=== PATIENT | female | born 1965 | race Caucasian/White ===

== ENCOUNTER 2025-01-08 07:32 | Day surgery (SDC) | payer OTHER, BC, SELFPAY ==
[2025-01-08] VITALS (21 sets, daily range): BP systolic 101–134; BP diastolic 63–88; PULSE 61–88; RESP 12–18; TEMP 36.2–37.1; O2SAT 96–100; BMI 21.9; BMI 21.7
--- OUTSIDE RECORDS SUMMARY | 2025-01-08 07:34 | XMS_ITS | Encounter Summary ---
Author Organization [facility] Address [address] [place] [address] Care Team Providers Care Explosive Ordnance Disposal Specialist Name Role Phone Juan Manuel Meraz MD Primary Care Provider [phone] Juan Manuel Meraz MD Unavailable [phone] Encounter Details Date Type Department Care Team (Late st Contact Info) Description 01/03/2010 [facility] [address] [place] [address] Juan Manuel Meraz MD [address] [facility] [address] [place] [address] [facility] DISCHARGE SUMMARY (Primary Dx) Social History Tobacco Use Types Packs/Day Years Used Date Smoking Tobacco: Never Smokeless Tobacco: Never Alcohol Use Standard Drinks/Week Comments Yes 0 (1 standard drink = 0.6 oz pur e alcohol) one/day Comments No Sex and Gender Information Value Date Recorded Sex Assigned at Not on file Legal Sex Female 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 Gender Identity Not on file Sexual Orientation Not on file 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 Not on file Not on file Not on file Not on file Not on file Not on file Emergency Department Director Not on file Not on file Not on file documented as of this encounter Plan of Treatment Not on file documented as of this encounter Visit Diagnoses Diagnosis [facility] DISCHARGE SUMMARY- Primary documented in this encounter Care Teams Explosive Ordnance Disposal Specialist Relationship Specialty Start Date End Date Juan Manuel Meraz MD PCP - General 12/24/08 Juan Manuel Meraz MD [address] [facility] [address] [place] [address] Assigned OBGYN Provider 07/04/20 documented as of this encounter
--- OUTSIDE RECORDS SUMMARY | 2025-01-08 07:34 | XMS_ITS | Clinical Summary ---
Author Organization [employer] [facility] Address [address] [place] [address] Care Team Providers Care Machine Mover Name Role Phone Cathy Escalante MD Primary Care Provider [phone] Allergies Active Allergy Reactions Criticality Noted Date Comments Sulfa (Sulfonamide Antibiotics) Hives 11/10 Medications multivitamin (MVI) tablet Take 1 tablet by mouth once daily. 0 10/09/2010 Active glucosamine-cho ndroitin, 500-400 mg, (COSAMIN DS 500/400) 500-400 mg Cap Take 1 capsule by mouth 3 times daily. 0 10/09/2010 Active omega-3 fatty acids-vitamin E (FISH OIL) 1,000 mg Cap Take by mouth. 0 02/10/2012 Active cyclobenzaprine (FLEXERIL) 5 mg tabletIndicatio ns:Acute right-sided low back pain without sciatica Take 1 Tablet (5 mg) by mouth 3 times daily if needed for Muscle Spasm. 30 Tablet 06/07/2024 Active oxybutynin XL (Ditropan XL) 5 mg CR tabletIndicatio ns:Urgency of urination,Urina ry frequency Take 1 Tablet (5 mg) by mouth once daily. 90 Tablet 3 07/25/2024 Active citalopram (CeleXA) 20 mg tabletIndicatio ns:Anxiety Take 1 Tablet (20 mg) by mouth once daily. 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 12/22/2009 Anxiety 03/10/2009 Encounters Date Type Department Care Team Description 01/08/2025 Nurse Triage [facility] [address] [place] [address] Cathy Escalante MD Abdominal Pain (RLQ) from Last 3 Months Immunizations Immunization Administration Dates Next Due Influenza A (H1N1), Inactivated 08/16/2009 Influenza Intradermal PF 18-64 yrs 09/21/2012 Influenza Virus, Unspecified 09/21/2012 Polio Virus, Unspecified 10/25/1977 Rubella 02/01/1979 Td (Age >=7 Years) 10/23/2001 Tdap 12/14/2013 Family History Medical History Relation Name Comments Good Health Brother Good Health Father Arthritis Mother Good Health Mother Cancer-breast No Family History Cancer-colon No Family History Premature CHD (under age 60) No Family History Relation Name Status Comments Brother Father Mother Social History Tobacco Use Types Packs/Day Years Used Date Smoking Tobacco: Never Smokeless Tobacco: Never Tobacco Cessation:Counseling Given: Yes Alcohol Use Standard Drinks/Week Comments Not Currently 0 (1 standard drink = 0.6 oz pur e alcohol) PHQ-2 Answer Date Recorded PHQ-2 TOTAL SCORE 0 07/25/2024 Social Connections Answer Date Recorded Do you often feel lonely or isolated from those around you? 0 07/24/2024 Financial Resource Strain Answer Date R ecorded Difficulty of Paying Living Expenses 3 05/30/2024 Difficulty of Paying Living Expenses Not on file 05/30/2024 Food Insecurity Answer Date Recorded Do you worry your food will run out before you are able to buy more? 1 07/24/2024 Transportation Needs Answer Date Record ed Does lack of transportation keep you from medica l appointments? 1 07/24/2024 Does lack of transportation keep you from work, meetings or getting things that you need? 1 07/24/2024 Housing Stability Answer Date Recorded What is your housing situation today? 1 07/24/2024 Utilities Answer Date Recorded Do you have trouble paying f or utilities (for example, heat, electricity, water, phone)? 1 07/24/2024 Comments No Sex and Gender Information Value Date Recorded Sex Assigned at Not on file Legal Sex Female 6:21 AM MEDICAL STAFF DIRECTOR Gender Identity Not on file Sexual Orientation Not on file Obstetrics History Para Term AB IAB SAB Ectopic Multiple Livin g Live Births 2 2 2 2 2 Date Outcome GA Total Labor Labor/2nd/3rd Weight Sex Type Anes PTL Kathya A1 A5 Name Clin 11/21 Term 40w 0d M Living Reyes 11/14 Term 40w 0d M Living Henry Last Filed Vital Signs Vital Sign Reading Time Taken Comments Blood Pressure 103/64 07/25/2024 7:57 AM MEDICAL STAFF DIRECTOR Pulse 84 07/25/2024 7:57 AM MEDICAL STAFF DIRECTOR Temperature 36.8 C (98.2 F) 07/03/2024 10:19 AM CDT Respiratory Rate 16 01/12/2010 2:00 AM CDT Oxygen Saturation 100% 07/25/2024 7:57 AM MEDICAL STAFF DIRECTOR Inhaled Oxygen Concentration - - Weight 56.1 kg (123 lb 9.6 oz) 07/25/2024 7:57 A M MEDICAL STAFF DIRECTOR Height 154.9 cm (5' 1) 07/25/2024 7:57 AM MEDICAL STAFF DIRECTOR Body Mass Index 23.35 07/25/2024 7:57 AM MEDICAL STAFF DIRECTOR Plan of Treatment Health Maintenance Due Date Last Done Comments HIV for age 15-65 02/12/1980 Hepatitis C screening for ag e 18-79 1983 Pneumococcal series for age 50+ (1 of 1 - PCV) 2015 Zoster (shingles) series for age 50+ (1 of 2) 2015 Tetanus booster 12/15/2023 12/14/2013, 10/23/2001 COVID-19 vaccine series ( season) 2024 06/23/2022, 07/09/2021, 12/17/2020, Additional history exists Influenza Vaccine (Season Ended) 2025 09/21/19 13, 09/21/2012 Lipids for age 45-75 07/15/2025 07/15/2020 (Verified in Care Everywhere or Patient Record) BMI (ht and wt on same day) for age 18+ 07/25/2025 07/25/2024, 12/13/2018 Depression screening for age 12+ 07/25/2025 07/25/2024, 12/14/2018, 12/13/2018 Mammogram for age 45-75 09/10/2025 09/10/20 24, 08/25/2018, 08/23/2017, Additional history exists Colonoscopy through age 75 07/19/202607/19, 07/19/2016, 07/19/2016 Pap test for age 21-65 07/18/2028 3 (Verified in Care Everywhere or Patient Record) Tdap Completed 12/14/2013 Procedures Procedure Name Priority Date/Time Associated Diagnosis Comments XR MAMMO CECILIA BILAT SCREEN Routine 09/10/2024 8:49 AM MEDICAL STAFF DIRECTOR Visit for screening mammogram SCAN-COLONOSCOPY 07/19/2016 12:0 0 AM MEDICAL STAFF DIRECTOR from Last 3 Months or Most Recently Relevant to Health Maintenance Results * XR MAMMO CECILIA BILAT SCREEN (09/10/2024 8:49 AM MEDICAL STAFF DIRECTOR) Anatomical Region Laterality Modality BREASTS, Breast Left, Breast Right Bilateral Mammography Impressions 09/10/2024 2:28 PM MEDICAL STAFF DIRECTOR There is no radiographic evidence for malignancy. Recommend annual mammograms. MAMMOGRAM ASSESSMENT: ACR 1 Negative PATIENTS: You will also receive a letter with your examination results in an easy to read format. If you have questions about your results, please contact your referring provider. Narrative 09/10/2024 2:28 PM MEDICAL STAFF DIRECTOR For Patients: As a result of the Century Cures Act, medical imaging exams and procedure reports are released immediately into your electronic medical record. You may view this report before your referring provider. If you have questions, please contact your health care provider. XR MAMMO CECILIA BILAT SCREEN [[id number]] CLINICAL HISTORY: This is an asymptomatic 59 y.o. patient. INDICATION FOR EXAM: Mammogram Screening. TECHNIQUE: CC & MLO views were obtained. This study was evaluated with the assistance of Computer-Aided Detection. Breast Tomosynthesis was used in interpretation. COMPARISON FILM: Yes 09/07/23 Outside Facility 09/03/22 Outside Facility FINDINGS: The breasts are heterogeneously dense, which may obscure small masses. There are no dominant masses, suspicious micro calcifications or areas of architectural distortion. us Cathy Escalante MD MAMMO Final Resul t * SCAN-COLONOSCOPY (07/19/2016 12:00 AM MEDICAL STAFF DIRECTOR) us Scanner OTHER Final Result from Last 3 Months or Most Recently Relevant to Health Maintenance Insurance [employer] OF [facility] TRAVELERS TRAVELERS Advance Directives * Full Code (Latest Code Status on File) Date Activated Date Inactivated Comments 01/02/2010 10:57 AM 01/03/2010 10:00 PM * Full Code Date Activated Date Inactivated Comments 01/01/2010 2:54 PM 01/02/2010 10:57 AM Care Teams Machine Mover Relationship Specialty Start Date End Date Cathy Escalante MD [address] [place] [address] PCP - General Family Practice 05/21/24
--- OUTSIDE RECORDS SUMMARY | 2025-01-08 07:34 | XMS_ITS | Encounter Summary ---
Author Organization [facility] Address [address] [place] [address] Care Team Providers Care Computer Equipment Repairer Name Role Phone Juan Manuel Meraz MD Primary Care Provider [phone] Juan Manuel Meraz MD Unavailable [phone] Reason for Visit * Reason Comments Medication Refill Encounter Details Date Type Department Care Team (Late st Contact Info) Description 09/24/2023 Refill [facility] [address] [place] [address] Juan Manuel Meraz MD [address] [place] [address] 100 [address] 160 [place] [address] Medication Refill Social History Tobacco Use Types Packs/Day Years Used Date Smoking Tobacco: Never Smokeless Tobacco: Never Alcohol Use Standard Drinks/Week Comments Yes 0 (1 standard drink = 0.6 oz pur e alcohol) one/day PHQ-2 Answer Date Recorded PHQ-2 Score 1 07/18/2023 Adolescent Education Answer Date Record ed Getting School Help Needed Not on file 06/26 Comments No Sex and Gender Information Value Date Recorded Sex Assigned at Not on file Legal Sex Female 3:14 AM SAFETY INTERN Gender Identity Not on file Sexual Orientation Not on file 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 Not on file Not on file Not on file Not on file Not on file Not on file Tele Marketing Executive Not on file Not on file Not on file documented as of this encounter Plan of Treatment Not on file documented as of this encounter Visit Diagnoses Diagnosis Urgency-frequency syndrome Hypertonicity of bladder documented in this encounter Care Teams Computer Equipment Repairer Relationship Specialty Start Date End Date Juan Manuel Meraz MD PCP - General 12/24/08 Juan Manuel Meraz MD [address] [facility] [address] [place] [address] Assigned OBGYN Provider 07/04/20 documented as of this encounter
--- OUTSIDE RECORDS SUMMARY | 2025-01-08 07:34 | XMS_ITS | Encounter Summary ---
Author Organization [facility] Address [address] [place] [address] Care Team Providers Care Steam Shovelman Name Role Phone Juan Manuel Meraz MD Primary Care Provider [phone] Juan Manuel Meraz MD Unavailable [phone] Encounter Details Date Type Department Care Team (Late st Contact Info) Description 06/27/2023 [facility] [address] [place] [address] Bonnie Juarez RN Social History Tobacco Use Types Packs/Day Years Used Date Smoking Tobacco: Never Smokeless Tobacco: Never Alcohol Use Standard Drinks/Week Comments Yes 0 (1 standard drink = 0.6 oz pur e alcohol) one/day PHQ-2 Answer Date Recorded PHQ-2 Score 0 07/06/2021 Adolescent Education Answer Date Record ed Getting School Help Needed Not on file 06/26 Comments No Sex and Gender Information Value Date Recorded Sex Assigned at Not on file Legal Sex Female 3:14 AM TRANSIT MECHANIC Gender Identity Not on file Sexual Orientation Not on file 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
--- OUTSIDE RECORDS SUMMARY | 2025-01-08 07:34 | XMS_ITS | Encounter Summary ---
Author Organization [facility] Address [address] [place] [address] Care Team Providers Care Hostess Party Sales Representative Name Role Phone Juan Manuel Meraz MD Primary Care Provider [phone] Juan Manuel Meraz MD Unavailable [phone] Encounter Details Date Type Department Care Team (Late st Contact Info) Description 01/12/2010 [facility] [address] [place] [address] Juan Manuel Meraz MD [address] [facility] [address] [place], [place] [id number] [facility] ED PROVIDER NOTE Social History Tobacco Use Types Packs/Day Years Used Date Smoking Tobacco: Never Smokeless Tobacco: Never Alcohol Use Standard Drinks/Week Comments Yes 0 (1 standard drink = 0.6 oz pur e alcohol) one/day Comments No Sex and Gender Information Value Date Recorded Sex Assigned at Not on file Legal Sex Female 3:14 AM SEWING MACHINE MECHANIC Gender Identity Not on file Sexual Orientation Not on file 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 Not on file Not on file Not on file Not on file Not on file Not on file 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
--- OUTSIDE RECORDS SUMMARY | 2025-01-08 07:34 | XMS_ITS | Encounter Summary ---
Author Organization [facility] Address [address] [place] [address] Care Team Providers Care Dials Supervisor Name Role Phone Juan Manuel Meraz MD Primary Care Provider Juan Manuel Meraz MD Unavailable [phone] Reason for Visit * Reason Onset Date Comments Call Back 06/23/2015 Pt would like a colonoscopy at [facility] and was wondering how to schedule Dr. Meraz did order it Encounter Details Date Type Department Care Team (Late st Contact Info) Description 06/23/[address] [address] Juan Manuel Meraz MD [address] [place] [address] 100 [address] [place] [address] Call Back (Pt would like a colonoscopy at [facility] and was wondering how to schedule Dr. 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 No / Unsure 09/03/2022 7:16 AM MARKETING EDUCATION TEACHER documented as of this encounter Miscellaneous Notes * Telephone Encounter - Juany Harper RN - 06/23/2015 4:28 PM CDT Pt calls back and states Dr Meraz told her he didn't care where she went for her colonoscopy. She is going to [place] for her Mammo and she wants to do it there due to transportation issues. Advised pt to check with her insurance to make sure they are in her network and then we can place the referral. Pt agrees and will call back Juany Harper RN, BSN * Telephone Encounter - Fe Belcher RN - 06/23/2015 4:20 PM CDT LM for call back- This is out of network referral. Fe Belcher RN * Telephone Encounter - Loan Langston - 06/23/2015 4:14 PM CDT Pt would like a colonoscopy at [facility] in [place] and was wondering how to schedule Dr. Meraz did order it. Ph# of patient [phone] documented in this encounter Plan of Treatment Not on file documented as of this encounter Visit Diagnoses Not on filedocumented in this encounter Care Teams Dials Supervisor Relationship Specialty Start Date End Date Juan Manuel Meraz MD PCP - General 12/24/08 Juan Manuel Meraz MD [address] [place] [address] 100 [address] [place] [address] Assigned OBGYN Provider 07/04/20 documented as of this encounter
--- OUTSIDE RECORDS SUMMARY | 2025-01-08 07:34 | XMS_ITS | Clinical Summary ---
Author Organization [facility] Address [address] [place] [address] Care Team Providers Care Raw Shellfish Preparer Name Role Phone Juan Manuel Meraz MD Primary Care Provider [phone] Juan Manuel Meraz MD Unavailable Allergies Active Allergy Reactions Criticality Noted Date Comments Sulfa Antibiotics Hives 01/19/2008 Medications MULTIVITAMIN ORIndications:Rout ine gynecological examination None Entered Activ e aspirin 81 MG EC tablet Take 1 tablet by mouth daily. 90 tablet 3 2 Active [place]-3 Fatty Acids (OMEGA-3 FISH OIL PO) Take by mouth daily Active Glucosamine-Chondr oit-Vit C-Mn (GLUCOSAMINE 1500 COMPLEX) CAPS Take 1,500 mg by mouth daily Active Black Cohosh 40 MG CAPS Take 40 mg by mouth daily Active Probiotic Product (PROBIOTIC PO) Take by mouth daily Active citalopram (CELEXA) 40 MG tabletIndications: Anxiety Take 0.5 tablets (20 mg) by mouth daily 90 tablet 3 3 Active oxyBUTYnin ER (DITROPAN XL) 5 MG 24 hr tabletIndications: Urgency-frequency syndrome Take 1 tablet (5 mg) by mouth daily 90 tablet 3 3 Active Active Problems Problem Noted Date Diagnosed Date Routine adult health maintenance 07/19/2016 Overview (07/18/2023): Colonoscopy 07/2016 normal repeat in 10 years Urgency of urination 11/10/2010 Urinary frequency 11/10/2010 CARDIOVASCULAR SCREENING; LDL GOAL LESS THAN 160 07/12/2010 S/P discectomy 04/03/2010 Displacement of lumbar inter vertebral disc without myelopathy 12/22/2009 Anxiety 03/10/2009 Resolved Problems Problem Noted Date Diagnosed Date Resolved Date Cystocele 03/10/2009 03/12/2010 Incontinence of urine 03/10/20092009 Immunizations Name Administration Dates Next Due Influenza (IIV3) PF 09/21/2012 Family History Medical History Relation Comments Cerebrovascular Disease Father Anxiety Disorder Maternal Grandfather Depression Maternal Grandfather Anxiety Disorder Mother Depression Mother Family History Negative No family hx of Relation Status Comments Father Alive Maternal Grandfather Mother Alive Social History Tobacco Use Types Packs/Day Years Used Date Smoking Tobacco: Never Smokeless Tobacco: Never Tobacco Cessation:Counseling Given: Not Answered Alcohol Use Standard Drinks/Week Comments Yes 0 (1 standard drink = 0.6 oz pur e alcohol) one/day PHQ-2 Answer Date Recorded PHQ-2 Score 1 07/18/2023 Adolescent Education Answer Date Record ed Getting School Help Needed Not on file 06/26 Comments No Sex and Gender Information Value Date Recorded Sex Assigned at Not on file Legal Sex Female 3:14 AM DEVELOPMENT REPRESENTATIVE Gender Identity Not on file Sexual Orientation Not on file 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 Not on file Not on file Not on file Not on file Not on file Not on file 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 on file Not on file Not on file Last Filed Vital Signs Vital Sign Reading Time Taken Comments Blood Pressure 110/68 07/18/2023 9:20 AM DEVELOPMENT REPRESENTATIVE Pulse 62 04/20/2016 1:59 PM CDT Temperature 37 C (98.6 F) 04/20/2016 1:59 PM CDT Respiratory Rate 16 11/25/2009 3:01 PM CDT Oxygen Saturation 97% 04/20/2016 1:59 PM CDT Inhaled Oxygen Concentration - - Weight 58.5 kg (129 lb) 07/18/2023 9:20 AM DEVELOPMENT REPRESENTATIVE Height 156.2 cm (5' 1.5) 05/24/2017 1:01 PM CDT Body Mass Index 23.98 05/24/2017 1:01 PM CDT Plan of Treatment Health Maintenance Due Date Last Done Comments ADVANCE CARE PLANNING 1965 ANNUAL REVIEW OF HM ORDERS 1965 CT COLONOGRAPHY 1965 DIABETES SCREENING 1965 FIT 1965 FLEX SIG 1965 sDNA (Cologuard) 1965 HIV SCREENING 02/12/1980 HEPATITIS C SCREENING 1983 HEPATITIS B IMMUNIZATION (1 of 3 - 19+ 3-dose series) 02/12/1984 Pneumococcal Vaccine: 50+ Years (1 of 1 - PCV) 2015 ZOSTER IMMUNIZATION (1 of 2) 2015 DTAP/TDAP/TD IMMUNIZATION (2 - Td or Tdap) 12/15/2023 12/14/2013, 10/23/2001 COVID-19 Vaccine ( season) 2024 06/23/2022, 07/09/2021, 12/17/2020, Additional history exists INFLUENZA VACCINE (#1) 2024 3, 09/21/2012, 09/21/2012, Additional history exists PHQ-2 (once per calendar year) 2024 07/18/2023, 07/06/2021, 04/20/2016 LIPID 07/15/2025 07/15/2020, 06/12, 12/13/2018, Additional history exists YEARLY PREVENTIVE VISIT 07/25/2025 07/25/20 24, 07/18/2023, 07/13/2022, Additional history exists MAMMO SCREENING 09/07/2025 09/07/2023, 08/13, 08/31/2021, Additional history exists COLONOSCOPY 07/19/2026 07/19/2016 COLORECTAL CANCER SCREENING 07/19/2026 HPV TEST 07/18/2028 07/18/2023, 11/0 09/2021, 06/25/2019, Additional history exists PAP 07/18/2028 07/18/2023, 110 09/2021, 06/25/2019, Additional history exists HPV IMMUNIZATION Aged Out No longer e ligible based on patient's age to complete this topic MENINGITIS IMMUNIZATION Aged Out No l onger eligible based on patient's age to complete this topic Procedures Procedure Name Priority Date/Time Associated Diagnosis Comments MA SCREENING BILATERAL W/ MESSI Routine 09/07/2023 7:46 AM DEVELOPMENT REPRESENTATIVE Encounter for screening mammogram for breast cancer GYNECOLOGIC CYTOLOGY Routine 07/18/2023 9:32 AM DEVELOPMENT REPRESENTATIVE Screening for malignant neoplasm of cervix HPV HIGH RISK TYPES DNA CERVICAL Routine 07/18/2023 9:32 AM DEVELOPMENT REPRESENTATIVE Screening for malignant neoplasm of cervix LIPID REFLEX TO DIRECT LDL PANEL Routine 07/15/2020 7:13 AM DEVELOPMENT REPRESENTATIVE CARDIOVASCULAR SCREENING; LDL GOAL LESS THAN 100 COLONOSCOPY - HIM SCAN Routine 07/19/2016 from Last 3 Months or Most Recently Relevant to Health Maintenance Results * MA Screen Bilateral w/Messi (09/07/2023 7:46 AM DEVELOPMENT REPRESENTATIVE) Anatomical Region Laterality Modality Breast Bilateral Mammography Impressions 09/07/2023 8:22 AM DEVELOPMENT REPRESENTATIVE IMPRESSION: ACR BI-RADS Category 1: Negative RECOMMENDED FOLLOW-UP: Annual routine screening mammogram The results and recommendations of this examination will be communicated to the patient. Compa Wahl MD Narrative 09/07/2023 8:22 AM DEVELOPMENT REPRESENTATIVE BILATERAL FULL FIELD DIGITAL SCREENING MAMMOGRAM WITH TOMOSYNTHESIS Performed on: 09/07/23 Compared to: 09/03/2022, 08/31/2021, and 08/28/2020 Technique: This study was evaluated with the assistance of Computer-Aided Detection. Breast Tomosynthesis was used in interpretation. Findings: The breasts are heterogeneously dense, which may obscure small masses. There is no radiographic evidence of malignancy. Juan Manuel Meraz MD IMG MAMMOGRAPHY ORDERABLES Milagro l Result * Pap screen with HPV - recommended age 30 - 65 years (07/18/2023 9:32 AM DEVELOPMENT REPRESENTATIVE) Interpretation Negative for Intraepithelial Lesion or Malignancy (NILM) 07/20/2023 3:29 PM DEVELOPMENT REPRESENTATIVE [facility] Comment Papanicolaou Test Limitations: Cervical cytology is a screening test with limited sensitivity, and regular screening is critical for cancer prevention. Pap tests are primarily effective for the diagnosis/prevent ion of squamous cell carcinoma, not adenocarcinoma or other cancers. 07/20/2023 3:29 PM DEVELOPMENT REPRESENTATIVE [facility] Specimen Adequacy Satisfactory for evaluation, endocerv/transfor mation zone component absent, atrophy 07/20/2023 3:29 PM DEVELOPMENT REPRESENTATIVE [facility] Clinical Information none 07/20/2023 3:29 PM DEVELOPMENT REPRESENTATIVE [facility] Reflex Testing Yes regardless of result 07/20/2023 3:29 PM DEVELOPMENT REPRESENTATIVE [facility] Previous Abnormal? No 07/20/2023 3:29 PM DEVELOPMENT REPRESENTATIVE [facility] Performing Labs The technical component of this testing was completed at [facility] 07/20/2023 3:29 PM [facility] Brushing CERVIX UTERI STRUCTURE / Unknown Non-blood Collection / Unknown 07/18/2023 9:32 AM DEVELOPMENT REPRESENTATIVE 07/18/2023 10:23 AM DEVELOPMENT REPRESENTATIVE Juan Manuel Meraz MD LAB - [facility] Final Result [facility] Specialty Lab [address] [facility], [address] [place] [address], [facility] [phone] * HPV High Risk Types DNA Cervical (07/18/2023 9:32 AM DEVELOPMENT REPRESENTATIVE) Other HR HPV Negative Negative 07/22/2023 6:58 AM DEVELOPMENT REPRESENTATIVE [facility] HPV16 DNA Negative Negative 07/22/2023 6:58 AM DEVELOPMENT REPRESENTATIVE [facility] HPV18 DNA Negative Negative 07/22/2023 6:58 AM DEVELOPMENT REPRESENTATIVE [facility] FINAL DIAGNOSIS This patient's sample is negative for HPV DNA. This test was developed and its performance characteristics determined by the [facility], Molecular Diagnostics Laboratory. It has not been cleared or approved by the FDA. The laboratory is regulated under CLIA as qualified to perform high-complexity testing. This test is used for clinical purposes. It should not be regarded as investigational or for research. METHODOLOGY: The Maricarmen Arlet 4800 system uses automated extraction, simultaneous amplification of HPV (L1 region) and beta-globin, followed by real time detection of fluorescent labeled HPV and beta globin using specific oligonucleotide probes. The test specifically identifies types HPV 16 DNA and HPV 18 DNA while concurrently detecting the rest of the high risk types (31, 33, 35, 39, 45, 51, 52, 56, 58, 59, 66 or 68). COMMENTS: This test is not intended for use as a screening device for woman under age 30 with normal cervical cytology. Results should be correlated with cytologic and histologic findings. Close clinical followup is recommended. 07/22/2023 6:58 AM DEVELOPMENT REPRESENTATIVE [facility] Brushing CERVIX UTERI STRUCTURE / Unknown Non-blood Collection / Unknown 07/18/2023 9:32 AM DEVELOPMENT REPRESENTATIVE 07/21/2023 7:39 AM DEVELOPMENT REPRESENTATIVE us Juan Manuel Meraz MD LAB - BLOOD ORDERABLES Final Re sult [facility] Molecular Diagnostics [address] [facility], [address] [place], [place] [id number], [facility] [phone] * (ABNORMAL) Lipid panel reflex to direct LDL Fasting (07/15/2020 7:13 AM DEVELOPMENT REPRESENTATIVE) Cholesterol 195 <200 mg/dL 07/15/2020 1:31 PM DEVELOPMENT REPRESENTATIVE [facility] Triglycerides 61 <150 mg/dL 07/15/2020 1:35 PM DEVELOPMENT REPRESENTATIVE [facility] HDL Cholesterol 74 >49 mg/dL 0 1:48 PM [facility] LDL Cholesterol Calculated 109(H) <100 mg/dL 07/15/2020 1:48 PM DEVELOPMENT REPRESENTATIVE [facility] Comment: Above desirable: 100-129 mg/dl Borderline High: 130-159 mg/dL High: 160-189 mg/dL Very high: >189 mg/dl Non HDL Cholesterol 121 <130 mg/dL 07/15/2020 1:48 PM DEVELOPMENT REPRESENTATIVE [facility] Blood specimen (specimen) 07/15/2020 7:13 AM DEVELOPMENT REPRESENTATIVE 07/15/2020 7:14 AM DEVELOPMENT REPRESENTATIVE us Juan Manuel Meraz MD LAB - BLOOD ORDERABLES Final Re sult [facility] [address] [place] [address] * Colonoscopy - HIM Scan (07/19/2016) 07/19/2016 Narrative EXTERNAL LAB - 07/19/2016 Please abstract the following data from this visit with this patient into the appropriate field in Epic: Colonoscopy done on this date: July 19, 2016 (approximately), by this group: [facility], results were normal. us Provider Outside PROCEDURES Final Result EXTERNAL LAB External Lab from Last 3 Months or Most Recently Relevant to Health Maintenance Insurance BCBS OUT OF STATE BCBS OUT OF STATE Care Teams Raw Shellfish Preparer Relationship Specialty Start Date End Date Juan Manuel Meraz MD PCP - General 12/24/08 Juan Manuel Meraz MD [address] [facility] [address] [place] [address] Assigned OBGYN Provider 07/04/20
--- OUTSIDE RECORDS SUMMARY | 2025-01-08 07:34 | XMS_ITS | Encounter Summary ---
Author Organization [facility] Address [address] [place] [address] Care Team Providers Care Office Administration Name Role Phone Juan Manuel Meraz MD Primary Care Provider Juan Manuel Meraz MD Unavailable [phone] Encounter Details Date Type Department Care Team (Late st Contact Info) Description 01/01/2010 [facility] Women's [address] [place] [address] Juan Manuel Meraz MD [address] [facility] [address] [place] [address] RUBY [address] ANESTHESIA ASSESSMENT/ POST ANESTHESIA (Primary Dx) Social History Tobacco Use Types Packs/Day Years Used Date Smoking Tobacco: Never Smokeless Tobacco: Never Alcohol Use Standard Drinks/Week Comments Yes 0 (1 standard drink = 0.6 oz pur e alcohol) one/day Comments No Sex and Gender Information Value Date Recorded Sex Assigned at Not on file Legal Sex Female 3:14 AM FOOD AND BEVERAGE SERVER Gender Identity Not on file Sexual Orientation Not on file 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
--- OUTSIDE RECORDS SUMMARY | 2025-01-08 07:34 | XMS_ITS | Encounter Summary ---
Author Organization [facility] Address [address] [place] [address] Care Team Providers Care Blood Bank Attendant Name Role Phone Juan Manuel Meraz MD Primary Care Provider [phone] Juan Manuel Meraz MD Unavailable [phone] Encounter Details Date Type Department Care Team (Late st Contact Info) Description 01/01/2010 [facility] Women's [address] [place] [address] Juan Manuel Meraz MD [address] [facility] [address] [place], [place] [id number] ADMISSION HISTORY & PHYSICAL (Primary Dx) Social History Tobacco Use Types Packs/Day Years Used Date Smoking Tobacco: Never Smokeless Tobacco: Never Alcohol Use Standard Drinks/Week Comments Yes 0 (1 standard drink = 0.6 oz pur e alcohol) one/day Comments No Sex and Gender Information Value Date Recorded Sex Assigned at Not on file Legal Sex Female 3:14 AM ANIMAL HUMANE AGENT SUPERVISOR Gender Identity Not on file Sexual Orientation Not on file 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
--- OUTSIDE RECORDS SUMMARY | 2025-01-08 07:34 | XMS_ITS | Encounter Summary ---
Author Organization [facility] Address [address] [place] [address] Care Team Providers Care Block Layer Name Role Phone Juan Manuel Meraz MD Primary Care Provider [phone] Juan Manuel Meraz MD Unavailable [phone] Reason for Visit * Reason Onset Date Comments Health Maintenance 10/07/2017 Colonoscopy C ompleted Encounter Details Date Type Department Care Team (Late st Contact Info) Description 10/07/[address] [address] Juan Manuel Meraz MD [address] [place] [address] [address] [place] [address] Health Maintenance (Colonoscopy Completed ) Social History Tobacco Use Types Packs/Day Years [...] on file Legal Sex Female 3:14 AM RING CONDUCTOR Gender Identity Not on file Sexual Orientation Not on file 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 No / Unsure 09/03/2022 7:16 AM RING CONDUCTOR documented as of this encounter Miscellaneous Notes * Telephone Encounter - Bri Patrick - 10/07/2017 4:02 PM CST Please abstract the following data from this visit with this patient into the appropriate field in Epic: Colonoscopy done on this date: July 19, 2016 (approximately), by this group: [facility], results were normal. CONDUCTOR documented in this encounter Plan of Treatment Not on file documented as of this encounter Visit Diagnoses Not on filedocumented in this encounter Care Teams Block Layer Relationship Specialty Start Date End Date Juan Manuel eMraz MD PCP - General 12/24/08 Juan Manuel Meraz MD [address] [place] [address] [address] [place] [address] Assigned OBGYN Provider 07/04/20 documented as of this encounter
--- OUTSIDE RECORDS SUMMARY | 2025-01-08 07:34 | XMS_ITS | Encounter Summary ---
Author Organization [facility] Address [address] [place] [address]. [place] [address] Care Team Providers Care Oyster Buyer Name Role Phone Juan Manuel Meraz MD Primary Care Provider [phone] Juan Manuel Meraz MD Unavailable [phone] Reason for Visit * Reason Onset Date Comments Health Maintenance 10/07/2017 Encounter Details Date Type Department Care Team (Late st Contact Info) Description 10/07/2017 Telephone M [address], [address] [place] [address] Juan Manuel Meraz MD [address] [place] [address] [address] [place] [address] Health Maintenance Social History Tobacco Use Types Packs/Day Years [...] on file Legal Sex Female 3:14 AM FIELD SERVICES MANAGER Gender Identity Not on file Sexual Orientation [...] Coronavirus/COVID-19? No / Unsure 09/03/2022 7:16 AM FIELD SERVICES MANAGER documented as of this encounter Miscellaneous Notes * Telephone Encounter - Leona Zambrano - 10/07/2017 3:57 PM CST Please abstract the following data from this visit with this patient into the appropriate field in Epic: Colonoscopy done on this date: Winter 2016 (approximately), by this group: [facility], results were normal. Mammogram done on this date: August 15 2017 (approximately), by this group: [facility], results werenormal. D SERVICES MANAGER documented in this encounter Plan of Treatment Not on file documented as of this encounter Visit Diagnoses Not on filedocumented in this encounter Care Teams Oyster Buyer Relationship Specialty Start Date End Date Juan Manuel Meraz MD PCP - General 12/24/08 Juan Manuel Meraz MD [address] [place] [address] [address] [place] [address] Assigned OBGYN Provider 07/04/20 documented as of this encounter
--- OUTSIDE RECORDS SUMMARY | 2025-01-08 07:34 | XMS_ITS | Encounter Summary ---
Author Organization [facility] Address [address] [place] [address] Care Team Providers Care Glass Scullion Name Role Phone Juan Manuel Meraz MD Primary Care Provider Juan Manuel Meraz MD Unavailable [phone] Encounter Details Date Type Department Care Team (Late st Contact Info) Description 01/03/2010 [facility] Women's [address] [place] [address] Juan Manuel Meraz MD [address] [facility] [address] [place] [address] RUBY MEDICINE POST-OP NOTE (Primary Dx) Social History Tobacco Use Types Packs/Day Years Used Date Smoking Tobacco: Never Smokeless Tobacco: Never Alcohol Use Standard Drinks/Week Comments Yes 0 (1 standard drink = 0.6 oz pur e alcohol) one/day Comments No Sex and Gender Information Value Date Recorded Sex Assigned at Not on file Legal Sex Female 3:14 AM REGION MANAGER Gender Identity Not on file Sexual Orientation Not on file 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
--- NOTE | 2025-01-08 07:54 | ED_ITS ---
HPI - General Adult General Date Seen: 01/08/25 Chief complaint: Abdominal Pain Stated complaint: Right ovary pain Time Seen by Provider: 01/08/25 07:51 History of Present Illness HPI narrative: 59-year-old female with a history of previous appendectomy, also overactive bladder, presenting to the ER today with right lower quadrant/right pelvic pain. Symptoms began yesterday afternoon about 2:00 a.m. in the afternoon while she was vacuuming. 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 She initially thought that maybe she just pulled a muscle when she was vacuuming yesterday work and then re-exacerbate it when she was vacuuming at home after work. Pain is located low in the right lower quadrant. She has noted for a long time that there seemed to be a little bit of a bulge in her right lower quadrant where it seemed asymmetrically larger than left. It is not really bigger than normal today. It has been hurting overnight and hurts whenever she rolls over. No other pain. No pain to the flank. No left-sided pain. She is not febrile. No nausea or vomiting. Bowel movements have been normal. Urination has been normal other than she does have some chronic overactive bladder. No known injury. No rash. No bruising. She tried to call her doctor's office to get a checkup and was referred here to the ER. Related Data Home Medications ?Medication ?Instructions ?Recorded ?Confirmed citalopram 20 mg tablet 20 mg PO QDAY 07/15/22 01/08/25 oxybutynin chloride 5 mg 5 mg PO QDAY 07/15/22 01/08/25 tablet,extended release 24 hr Previous Rx's ?Medication ?Instructions ?Recorded hydrocodone 5 mg-acetaminophen 325 1 tab PO Q6H PRN pain #20 tabs 01/08/25 mg tablet sennosides 8.6 mg capsule (senna) 8.6 mg PO DAILY PRN constipation 01/08/25 #90 caps Allergies Allergy/AdvReac Type Severity Reaction Status Date / Time Sulfa (Sulfonamide Allergy Hives Verified 01/08/25 12:04 Antibiotics) PFSH [facility] Medical History (Updated 01/08/25 @ 12:35 by Treasure Rosario MD) Anxiety ?F41.9 - Anxiety disorder, unspecified (ICD-10) Low back pain ?M54.50 - Low back pain, unspecified (ICD-10) Surgical History (Updated 07/15/22 @ 13:29 by Ronel Tyler ~ GROUNDS/MAINTENANCE SPECIALIST, GROUNDS/MAINTENANCE SPECIALIST) History of back surgery ?Z98.890 - Other specified postprocedural states (ICD-10) History of bladder surgery ?Z98.890 - Other specified postprocedural states (ICD-10) History of appendectomy ?Z90.49 - Acquired absence of other specified parts of digestive tract (ICD- 10) Social History Smoking Status: Never smoker Second hand tobacco smoke exposure: No How often do you have a drink containing alcohol: 2-4 times a month AUDIT-C Alcohol total score: 2 Non-prescribed substance use: denies use Caffeine: Yes Exam Narrative: Exam Narrative: Constitutional: Appears well-developed and well-nourished. Alert. Conversant. Very polite. Non toxic. HENT: Head: Atraumatic. Nose: Nose normal. Mouth/Throat: Oral mucosa is clear and moist. no trismus. Pharynx normal. Tonsils symmetric. No tonsillar enlargement, erythema, or exudate. Eyes: Conjunctivae normal. EOM normal. Pupils equal, round, and reactive to light. No scleral icterus. Neck: Normal range of motion. Neck supple. No tracheal deviation present. Cardiovascular: Normal rate, regular rhythm. No gallop. No friction rub. No murmur heard. Symmetric radial artery pulses Pulmonary/Chest: Effort normal. No stridor. No respiratory distress. No wheezes. No rales. No rhonchi . No tenderness. Abdominal: Soft. Bowel sounds normal. No distension. No mass. Marked right lower quadrant tenderness with guarding. No rebound. No Rovsing sign. No psoas sign. No CVA tenderness. No right upper quadrant tenderness. Musculoskeletal: RUE: Normal range of motion. No tenderness. No deformity LUE: Normal range of motion. No tenderness. No deformity RLE: Normal range of motion. No edema. No tenderness. No deformity LLE: Normal range of motion. No edema. No tenderness. No deformity Neurological: Alert and oriented to person, place, and time. Normal strength. CN II-VII intact. No sensory deficit. GCS eye subscore is 4. GCS verbal subscore is 5. GCS motor subscore is 6. Normal coordination Skin: Skin is warm and dry. No rash noted. No pallor. Normal capillary refill. Psychiatric: Normal mood. Normal affect. Const: Vital Signs, click to edit/add: Vital Signs - 24 hr 01/08/25 07:35 01/08/25 09:02 01/08/25 09:30 Temperature 98.7 F Pulse Rate Pulse Rate [Pulse Oximeter] 66 61 65 Respiratory Rate 16 18 16 Blood Pressure Blood Pressure [Ri ght Upper Arm] 127/78 132/82 121/77 Pulse Oximetry 96 99 99 Oxygen Delivery Me thod Room Air Room Air Room Air 01/08/25 10:00 01/08/25 10:30 01/08/25 11:00 Temperature Pulse Rate Pulse Rate [Pulse Oximeter] 62 66 67 Respiratory Rate 16 16 16 Blood Pressure Blood Pressure [Ri ght Upper Arm] 118/74 117/63 101/88 Pulse Oximetry 99 100 98 Oxygen Delivery Me thod Room Air Room Air Room Air 01/08/25 11:30 01/08/25 12:01 01/08/25 13:46 Temperature 97.7 F 97.7 F Pulse Rate 63 88 Pulse Rate [Pulse Oximeter] 64 Respiratory Rate 16 16 12 Blood Pressure 129/77 133/70 Blood Pressure [Ri ght Upper Arm] 116/75 Pulse Oximetry 98 96 96 Oxygen Delivery Me thod Room Air Room Air Room Air 01/08/25 13:50 01/08/25 13:55 01/08/25 14:00 Temperature Pulse Rate 81 79 78 Pulse Rate [Pulse Oximeter] Respiratory Rate 13 14 12 Blood Pressure 124/70 123/69 123/73 Blood Pressure [Ri ght Upper Arm] Pulse Oximetry 97 97 98 Oxygen Delivery Me thod 01/08/25 14:05 01/08/25 14:10 01/08/25 14:15 Temperature Pulse Rate 80 81 80 Pulse Rate [Pulse Oximeter] Respiratory Rate 13 12 14 Blood Pressure 123/74 121/71 121/72 Blood Pressure [Ri ght Upper Arm] Pulse Oximetry 99 97 99 Oxygen Delivery Me thod 01/08/25 14:19 01/08/25 14:30 Temperature 97.1 F L Pulse Rate 75 76 Pulse Rate [Pulse Oximeter] Respiratory Rate 16 16 Blood Pressure 124/76 134/76 Blood Pressure [Ri ght Upper Arm] Pulse Oximetry 99 99 Oxygen Delivery Me thod Room Air Room Air Course Vital Signs Vital signs: Initial Vital Signs Temperature 98.7 F 01/08/25 07:35 Temperature Source Temporal Artery Scan 01/08/25 07:35 Pulse Rate 66 01/08/25 07:35 Respiratory Rate 16 01/08/25 07:35 Blood Pressure 127/78 01/08/25 07:35 Blood Pressure Mean 94 01/08/25 07:35 Blood Pressure Position Sitting 01/08/25 07:35 Pulse Oximetry 96 01/08/25 07:35 Oxygen Delivery Method Room Air 01/08/25 07:35 Vital Signs Temperature 98.7 F 01/08/25 07:35 Pulse Rate 66 01/08/25 07:35 Respiratory Rate 16 01/08/25 07:35 Blood Pressure 127/78 01/08/25 07:35 Pulse Oximetry 96 01/08/25 07:35 Oxygen Delivery Method Room Air 01/08/25 07:35 Temperature 97.1 F L 01/08/25 14:19 Pulse Rate 76 01/08/25 14:30 Respiratory Rate 16 01/08/25 14:30 Blood Pressure 134/76 01/08/25 14:30 Pulse Oximetry 99 01/08/25 14:30 Oxygen Delivery Method Room Air 01/08/25 14:30 Medications Administered Medications: Generic Name Dose Route Start Last Admin Trade Name Freq PRN Reason Stop Dose Admin Lactated Ringer's 1,000 mls @ 100 mls/hr 01/08/25 12:00 01/08/25 14:12 Lactated Ringers 1000 Ml IV 30 mls/hr .Q10H ANNY Infusion Scopolamine 1 patch 01/08/25 12:15 01/08/25 12:33 Scopolamine 1 Mg/3 Day Patch TRANSDERMA 1 patch Q72H ANNY Administration Sodium Chloride 10 ml 01/08/25 12:00 01/08/25 12:04 Sodium Chloride 0.9 % (Flush) 10 Ml Syringe IVF 10 ml .FLUSH PRN Administration Discontinued Medications Generic Name Dose Route Start Last Admin Trade Name Freq PRN Reason Stop Dose Admin Bupivacaine HCl 30 ml 01/08/25 13:38 01/08/25 13:30 Bupivacaine 0.25% 30 Ml INJECTION 01/08/25 13:39 10 ml ONCE ONE Administration Cefazolin Sodium 0 gm 01/08/25 11:02 01/08/25 12:29 Cefazolin 1 Gm Inj IVP 01/08/25 11:03 1 gm ONCE ONE Administration Fentanyl 50 mcg 01/08/25 09:08 01/08/25 09:21 Fentanyl 100 Mcg/2 Ml Inj IVP 01/08/25 09:09 50 mcg ONCE ONE Administration Ondansetron HCl 4 mg 01/08/25 09:08 01/08/25 09:21 Ondansetron 2 Mg/Ml Inj IVP 01/08/25 09:09 4 mg ONCE ONE Administration Medical Decision Making MDM Narrative Medical decision making narrative: Presented to the Emergency Department with right lower quadrant abdominal pain. The differential diagnosis of abdominal pain includes: Ovarian pathology, colitis, diverticulitis, Bowel Obstruction, Ulcer, Ischemia, Cholecystitis, Diverticulitis, Pancreatitis, UTI, kidney stone, Enteritis/Colitis, amongst many other etiologies. Patient was initially concerned about a potential right ovarian problem. Pelvic ultrasound is negative for ovarian problems but does suggest a possible small right inguinal hernia. My exam does confirm tenderness of that right inguinal hernia and I think that this likely is the cause for her pain. At this point there is no evidence for obstruction. There is no overlying redness of the skin on the hernia but it is tender and I am not able to reduce it even after sedation and relaxation with fentanyl given here in the ER. Discussed with surgery who requests CT. CT scan confirms that hernia which fortunately contains abdominal fluid but no loop of bowel. The CT does show evidence for inflammation around the hernia sac which is likely why it has become more painful over the past couple of days. Surgery will take her to the OR today for repair. Lab Data Labs: Lab Results 01/08/25 01/08/25 Range/Units 08:16 08:27 WBC 4.53 (4.50-11.00) K/uL RBC 4.36 (4.00-5.20) m/uL Hgb 13.2 (12.0-16.0) gm/dL Hct 39.1 (33.0-51.0) % MCV 90 (80-100) fL MCH 30 (26-34) pg MCHC 34 (32-36) gm/dL RDW Coeff of Alondra 12.8 (11.5-15.5) % Plt Count 222 (140-440) K/uL Neut % (Auto) 54.6 (42.0-72.0) % Lymph % (Auto) 35.3 (20-44) % Bonner % (Auto) 7.9 (0.0-11.0) % Eos % (Auto) 1.3 (0.0-7.0) % Baso % (Auto) 0.9 (0.0-3.0) % Neut # (Auto) 2.47 (1.7-7.0) K/uL Lymph # (Auto) 1.60 (0.90-2.90) K/uL Bonner # (Auto) 0.40 (0.00-0.90) K/UL Eos # (Auto) 0.06 (0.00-0.50) K/uL Baso # (Auto) 0.04 (0.00-0.30) K/uL Abs Immat Gran (auto) 0.00 (0.00-0.30) K/uL Imm/Tot Granulo (auto) 0.0 % Sodium 138 (135-149) mmol/L Potassium 4.0 (3.6-5.1) mmol/L Chloride 104 (96-114) mmol/L Carbon Dioxide 28 (20-32) mmol/L Anion Gap 6 L (7-15) mEq/L BUN 15 (7-30) mg/dL Creatinine 0.7 (0.5-1.5) mg/dL Estimated Creat Clear 65.30 Estimated GFR 100 ml/min Glucose 91 (60-115) mg/dL Calcium 9.0 (8.4-10.6) mg/dL Total Bilirubin 0.8 (0.1-1.5) mg/dL AST 28 (12-35) U/L ALT 18 (4-35) U/L Alkaline Phosphatase 47 (40-150) U/L Total Protein 6.5 (6.0-8.3) g/dL Albumin 4.3 (3.3-5.0) g/dL Urine Color Yellow (Yellow) Urine Appearance Clear (Clear) Urine pH 5.5 (5.0-8.5) Ur Specific [place] 1.010 (1.000-1.030) Urine Protein Negative (Negative) Urine Glucose (UA) Negative (Negative) Urine Ketones Negative (Negative) Urine Blood Negative (Negative) Urine Nitrite Negative (Negative) Urine Bilirubin Negative (Negative) Urine Urobilinogen 0.2 (0.2-1.0) Ur Leukocyte Esterase Negative (Negative) Urine RBC 0-2 (0-2) Urine WBC 0-2 (0-5) Ur Squamous Epith Cells None (None-Few) Urine Bacteria None (None) Imaging Data US pelvis: Attestation: I have reviewed the pertinent imaging results. Radiologist's impression: IMPRESSION: In the right inguinal region there is a finding consistent with a hernia as described in detail above. Surgical consultation is recommended for further management. CT abd: Attestation: I have reviewed the pertinent imaging results. Radiologist's impression: IMPRESSION: 1. There is a right inguinal hernia. By CT, this contains a peritoneal sac containing fluid but no definite bowel contents within the hernia sac. The fat in this area appears to be inflamed. The fluid containing sac measures about 4.3 x 2.0 centimeters. Surgical consultation is advised. 2. Small fat containing left inguinal hernia without evidence of inflammation. 3. Other nonacute appearing findings as above. Discharge Plan Discharge Patient Disposition: XFER to OR
--- NOTE | 2025-01-08 08:01 | CRLHL7_ITS ---
For Patients: As a result of the Cures Act, medical imaging exams and procedure reports are released immediately into your electronic medical record. You may view this report before your referring provider. If you have questions, please contact your health care provider. INDICATION: Right lower quadrant pain. COMPARISON: None available. TECHNIQUE: Focused grayscale and color Doppler sonographic interrogation of the right inguinal region was performed. The study was then remotely without a radiologist present. FINDINGS: In the superficial soft tissues of the right inguinal region, medial to the femoral vessels, there is a mixed echotexture finding which measures approximately 3 x 1.5 x 5.3 cm in transverse, AP and craniocaudad dimensions, respectively. This finding is suspicious for hernia. The relationship of this finding with respect to the inferior epigastric vessels is unclear therefore no comment can be made regarding whether this represents a direct or indirect inguinal hernia. There is a simple fluid element within the hernia sac and vascular soft tissue which may represent bowel or omental fat. No clear bowel signature is evident. If clinically indicated CT could be performed for further characterization of this finding. IMPRESSION: In the right inguinal region there is a finding consistent with a hernia as described in detail above. Surgical consultation is recommended for further management. Dictated by Armani Keenan MD @ 01/08/2025 8:55:23 AM (Electronically Signed)
--- OUTSIDE RECORDS SUMMARY | 2025-01-08 08:13 | XMS_ITS | Encounter Summary ---
Author Organization [facility] Address [address] [place] [address] Care Team Providers Care Flagman Name Role Phone Juan Manuel Meraz MD Primary Care Provider [phone] Juan Manuel Meraz MD Unavailable [phone] Reason for Visit * Reason Onset Date Comments Call Back 06/23/2015 Pt would like a colonoscopy at [facility] and was wondering how to schedule Dr. Meraz did order it Encounter Details Date Type Department Care Team (Late st Contact Info) Description 06/23/[address] [address] Juan Manuel Meraz MD [address] [place] [address] [address] [place] [address] Call Back (Pt would like a colonoscopy at [facility] and was wondering how to schedule Dr. [...] on file Legal Sex Female 3:14 AM MANAGER BUSINESS CONTINUITY Gender Identity Not on file Sexual Orientation [...] Coronavirus/COVID-19? No / Unsure 09/03/2022 7:16 AM MANAGER BUSINESS CONTINUITY documented as of this encounter Miscellaneous Notes * Telephone Encounter - Juany Harper RN - 06/23/2015 4:28 PM CDT Pt calls back and states Dr Meraz told her he didn't care where she went for her colonoscopy. She is going to [place] for her Mammo and she wants to [...] CDT Pt would like a colonoscopy at [facility] in [place] and was wondering how to schedule Dr. Meraz did order it. Ph# of patient [phone] documented in this encounter Plan of Treatment Not on file documented as of this encounter Visit Diagnoses Not on filedocumented in this encounter Care Teams Flagman Relationship Specialty Start Date End Date Juan Manuel Meraz MD PCP - General 12/24/08 Juan Manuel Meraz MD [address] [place] [address] [address] [place] [address] Assigned OBGYN Provider 07/04/20 documented as of this encounter
--- OUTSIDE RECORDS SUMMARY | 2025-01-08 08:13 | XMS_ITS | Clinical Summary ---
Author Organization [facility] Address [address] [place] [address] Care Team Providers Care Logistics Coordinator Name Role Phone Juan Manule Meraz MD Primary Care Provider [phone] Juan Manuel Meraz MD Unavailable [phone] Allergies Active Allergy Reactions Criticality Noted Date Comments Sulfa Antibiotics Hives 01/19/2008 Medications MULTIVITAMIN ORIndications:Rout ine gynecological examination None Entered Activ e aspirin 81 MG EC tablet Take 1 tablet by mouth daily. 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 Not on file Not on file Not on file Last Filed Vital Signs Vital Sign Reading Time Taken Comments Blood Pressure 110/68 07/18/2023 9:20 AM PASSEMENTERIE WORKER Pulse 62 04/20/2016 1:59 PM CDT Temperature 37 C (98.6 F) 04/20/2016 1:59 PM CDT Respiratory Rate 16 11/25/2009 3:01 PM CDT Oxygen Saturation 97% 04/20/2016 1:59 PM CDT Inhaled Oxygen Concentration - - Weight 58.5 kg (129 lb) 07/18/2023 9:20 AM PASSEMENTERIE WORKER Height 156.2 cm (5' 1.5) 05/24/2017 1:01 [...] BILATERAL W/ MESSI Routine 09/07/2023 7:46 AM PASSEMENTERIE WORKER Encounter for screening mammogram for breast cancer GYNECOLOGIC CYTOLOGY Routine 07/18/2023 9:32 AM PASSEMENTERIE WORKER Screening for malignant neoplasm of cervix HPV HIGH RISK TYPES DNA CERVICAL Routine 07/18/2023 9:32 AM PASSEMENTERIE WORKER Screening for malignant neoplasm of cervix LIPID REFLEX TO DIRECT LDL PANEL Routine 07/15/2020 7:13 AM PASSEMENTERIE WORKER CARDIOVASCULAR SCREENING; LDL GOAL LESS THAN 100 COLONOSCOPY - HIM SCAN Routine 07/19/2016 from Last 3 Months or Most Recently Relevant to Health Maintenance Results * MA Screen Bilateral w/Messi (09/07/2023 7:46 AM PASSEMENTERIE WORKER) Anatomical Region Laterality Modality Breast Bilateral Mammography Impressions 09/07/2023 8:22 AM PASSEMENTERIE WORKER IMPRESSION: ACR BI-RADS Category 1: Negative RECOMMENDED FOLLOW-UP: Annual routine screening mammogram The results and recommendations of this examination will be communicated to the patient. Compa Wahl MD Narrative 09/07/2023 8:22 AM PASSEMENTERIE WORKER BILATERAL FULL FIELD DIGITAL SCREENING MAMMOGRAM WITH [...] 30 - 65 years (07/18/2023 9:32 AM PASSEMENTERIE WORKER) Interpretation Negative for Intraepithelial Lesion or Malignancy (NILM) 07/20/2023 3:29 PM PASSEMENTERIE WORKER [facility] Comment Papanicolaou Test Limitations: Cervical cytology is a screening test with limited sensitivity, and regular screening is critical for cancer prevention. Pap tests are primarily effective for the diagnosis/prevent ion of squamous cell carcinoma, not adenocarcinoma or other cancers. 07/20/2023 3:29 PM PASSEMENTERIE WORKER [facility] Specimen Adequacy Satisfactory for evaluation, endocerv/transfor mation zone component absent, atrophy 07/20/2023 3:29 PM PASSEMENTERIE WORKER [facility] Clinical Information none 07/20/2023 3:29 PM PASSEMENTERIE WORKER [facility] Reflex Testing Yes regardless of result 07/20/2023 3:29 PM PASSEMENTERIE WORKER [facility] Previous Abnormal? No 07/20/2023 3:29 PM PASSEMENTERIE WORKER [facility] Performing Labs The technical component of this testing was completed at [facility] 07/20/2023 3:29 PM [facility] Brushing CERVIX UTERI STRUCTURE / Unknown Non-blood Collection / Unknown 07/18/2023 9:32 AM PASSEMENTERIE WORKER 07/18/2023 10:23 AM PASSEMENTERIE WORKER Juan Manuel Meraz MD LAB - [facility] Final Result [facility] Specialty Lab [address] [facility], [address] [place] [address], [facility] [phone] * HPV High Risk Types DNA Cervical (07/18/2023 9:32 AM PASSEMENTERIE WORKER) Other HR HPV Negative Negative 07/22/2023 6:58 AM PASSEMENTERIE WORKER [facility] HPV16 DNA Negative Negative 07/22/2023 6:58 AM PASSEMENTERIE WORKER [facility] HPV18 DNA Negative Negative 07/22/2023 6:58 AM PASSEMENTERIE WORKER [facility] FINAL DIAGNOSIS This patient's sample is negative for HPV DNA. This test was developed and its performance characteristics determined by the [facility], Molecular Diagnostics Laboratory. It has not been [...] clinical followup is recommended. 07/22/2023 6:58 AM PASSEMENTERIE WORKER [facility] Brushing CERVIX UTERI STRUCTURE / Unknown Non-blood Collection / Unknown 07/18/2023 9:32 AM PASSEMENTERIE WORKER 07/21/2023 7:39 AM PASSEMENTERIE WORKER us Juan Manuel Meraz MD LAB - BLOOD ORDERABLES Final Re sult [facility] Molecular Diagnostics [address] [facility], [address] [place], [place] [id number], [facility] [phone] * (ABNORMAL) Lipid panel reflex to direct LDL Fasting (07/15/2020 7:13 AM PASSEMENTERIE WORKER) Cholesterol 195 <200 mg/dL 07/15/2020 1:31 PM PASSEMENTERIE WORKER [facility][1] Triglycerides 61 <150 mg/dL 07/15/2020 1:35 PM PASSEMENTERIE WORKER [facility][1] HDL Cholesterol 74 >49 mg/dL 0 1:48 PM [facility] LDL Cholesterol Calculated 109(H) <100 mg/dL 07/15/2020 1:48 PM PASSEMENTERIE WORKER [facility][1] Comment: Above desirable: 100-129 mg/dl Borderline High: 130-159 mg/dL High: 160-189 mg/dL Very high: >189 mg/dl Non HDL Cholesterol 121 <130 mg/dL 07/15/2020 1:48 PM PASSEMENTERIE WORKER [facility][1] Blood specimen (specimen) 07/15/2020 7:13 AM PASSEMENTERIE WORKER 07/15/2020 7:14 AM PASSEMENTERIE WORKER us Juan Manuel Meraz MD LAB - BLOOD ORDERABLES Final Re sult [facility] [address] [place] [address] * Colonoscopy - HIM Scan (07/19/2016) 07/19/2016 Narrative EXTERNAL LAB - 07/19/2016 Please abstract the following data from this visit with this patient into the appropriate field in Epic: Colonoscopy done on this date: July 19, 2016 (approximately), by this group: [facility], results were normal. us Provider Outside PROCEDURES Final Result EXTERNAL LAB External Lab from Last 3 Months or Most Recently Relevant to Health Maintenance Insurance BCBS OUT OF STATE BCBS OUT OF STATE Care Teams Logistics Coordinator Relationship Specialty Start Date End Date Juan Manuel Meraz MD PCP - General 12/24/08 Juan Manuel Meraz MD [address] [facility] [address] [place] [address] Assigned OBGYN Provider 07/04/20
--- OUTSIDE RECORDS SUMMARY | 2025-01-08 08:13 | XMS_ITS | Encounter Summary ---
Author Organization [facility] Address [address] [place] [address] Care Team Providers Care Guide Cruise Name Role Phone Juan Manuel Meraz MD Primary Care Provider [phone] Juan Manuel Meraz MD Unavailable [phone] Encounter Details Date Type Department Care Team (Late st Contact Info) Description 06/27/2023 [facility] Medical Advice [facility] [address] [place] [id number] Bonnie Juarez RN Social History Tobacco Use [...] on file Legal Sex Female 3:14 AM BALL MILL MIXER Gender Identity Not on file Sexual Orientation [...] on filedocumented in this encounter Care Teams Guide Cruise Relationship Specialty Start Date End Date Juan Manuel Meraz MD PCP - General 12/24/08 Juan Manuel Meraz MD [address] [facility] [address] [place] [address] Assigned OBGYN Provider 07/04/20 documented as of this encounter
--- OUTSIDE RECORDS SUMMARY | 2025-01-08 08:13 | XMS_ITS | Encounter Summary ---
Author Organization [place] Address [address] [place] [address] Care Team Providers Care Gas Reverser Name Role Phone Juan Manuel Meraz MD Primary Care Provider [phone] Juan Manuel Meraz MD Unavailable [phone] Encounter Details Date Type Department Care Team (Late st Contact Info) Description 01/03/2010 [facility] Women's [address] [place] [address] Juan Manuel Meraz MD 303 [facility] 100 [address] [place] [address] [facility] DISCHARGE SUMMARY (Primary Dx) Social History Tobacco Use Types Packs/Day Years Used Date Smoking Tobacco: Never Smokeless Tobacco: Never Alcohol Use Standard Drinks/Week Comments Yes 0 (1 standard drink = 0.6 oz pur e alcohol) one/day Comments No Sex and Gender Information Value Date Recorded Sex Assigned at Not on file Legal Sex Female 3:14 AM HOMICIDE SQUAD SERGEANT Gender Identity Not on file Sexual Orientation Not on file 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
--- OUTSIDE RECORDS SUMMARY | 2025-01-08 08:13 | XMS_ITS | Encounter Summary ---
Author Organization [place] Address [address] [place] [address] Care Team Providers Care Vulcanized Fiber Unit Operator Name Role Phone Juan Manuel Meraz MD Primary Care Provider [phone] Juan Manuel Meraz MD Unavailable [phone] Encounter Details Date Type Department Care Team (Late st Contact Info) Description 01/01/2010 [facility] Women's [address] [place] [address] Juan Manuel Meraz MD 303 [facility] 100 [address] 160 [place], [place] [id number] ADMISSION HISTORY & PHYSICAL (Primary Dx) Social History Tobacco Use Types Packs/Day Years Used Date Smoking Tobacco: Never Smokeless Tobacco: Never Alcohol Use Standard Drinks/Week Comments Yes 0 (1 standard drink = 0.6 oz pur e alcohol) one/day Comments No Sex and Gender Information Value Date Recorded Sex Assigned at Not on file Legal Sex Female 3: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 Gender Identity Not on file Sexual Orientation Not on file 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
--- OUTSIDE RECORDS SUMMARY | 2025-01-08 08:13 | XMS_ITS | Encounter Summary ---
Author Organization [place] Address [address] [place] [address] Care Team Providers Care Corporate Planning Manager Name Role Phone Juan Manuel Meraz MD Primary Care Provider [phone] Juan Manuel Meraz MD Unavailable [phone] Encounter Details Date Type Department Care Team (Late st Contact Info) Description 01/01/2010 [facility] Women's [address] [place] [address] Juan Manuel Meraz MD 303 [facility] 100 [address] 160 [place] [address] [facility] [address] ANESTHESIA ASSESSMENT/ POST ANESTHESIA (Primary Dx) Social History Tobacco Use Types Packs/Day Years Used Date Smoking Tobacco: Never Smokeless Tobacco: Never Alcohol Use Standard Drinks/Week Comments Yes 0 (1 standard drink = 0.6 oz pur e alcohol) one/day Comments No Sex and Gender Information Value Date Recorded Sex Assigned at Not on file Legal 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 Female 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 Gender Identity Not on file Sexual Orientation Not on file 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 Not on file Not on file Not on file Not on file Not on file Not on file 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
--- OUTSIDE RECORDS SUMMARY | 2025-01-08 08:13 | XMS_ITS | Encounter Summary ---
Author Organization [place] Address [address] [place] [address] Care Team Providers Care E Commerce Merchant Name Role Phone Juan Manuel Meraz MD Primary Care Provider [phone] Juan Manuel Meraz MD Unavailable [phone] Encounter Details Date Type Department Care Team (Late st Contact Info) Description 01/12/2010 [facility] Women's [address] [place] [address] Juan Manuel Meraz MD 303 [facility] 100 [address] [place], [place] [id number] [facility] ED PROVIDER NOTE Social History Tobacco Use Types Packs/Day Years Used Date Smoking Tobacco: Never Smokeless Tobacco: Never Alcohol Use Standard Drinks/Week Comments Yes 0 (1 standard drink = 0.6 oz pur e alcohol) one/day Comments No Sex and Gender Information Value Date Recorded Sex Assigned at Not on file Legal Sex Female 3: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 Gender Identity Not on file Sexual Orientation Not on file 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
--- OUTSIDE RECORDS SUMMARY | 2025-01-08 08:13 | XMS_ITS | Encounter Summary ---
Author Organization [place] Address [address] [place] [address] Care Team Providers Care Process Mechanic Name Role Phone Juan Manuel Meraz MD Primary Care Provider Juan Manuel Meraz MD Unavailable [phone] Encounter Details Date Type Department Care Team (Late st Contact Info) Description 01/03/2010 [facility] Women's [address] [place] [address] Juan Manuel Meraz MD 303 [facility] 100 [address] [place] [address] [facility] MEDICINE POST-OP NOTE (Primary Dx) Social History Tobacco Use Types Packs/Day Years Used Date Smoking Tobacco: Never Smokeless Tobacco: Never Alcohol Use Standard Drinks/Week Comments Yes 0 (1 standard drink = 0.6 oz pur e alcohol) one/day Comments No Sex and Gender Information Value Date Recorded Sex Assigned at Not on file Legal Sex Female 3:14 AM LICENSED 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 Gender Identity Not on file Sexual Orientation Not on file 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
--- OUTSIDE RECORDS SUMMARY | 2025-01-08 08:13 | XMS_ITS | Encounter Summary ---
Author Organization [place] Address [address] [place] [address] Care Team Providers Care Parcel Post Officer Name Role Phone Juan Manuel Meraz MD Primary Care Provider Juan Manuel Meraz MD Unavailable [phone] Reason for Visit * Reason Comments Medication Refill Encounter Details Date Type Department Care Team (Late st Contact Info) Description 09/24/2023 Refill [facility] Women's [address] [place] [address] Juan Manuel Meraz MD [address] [place] [address] 100 [address] 160 [place] [address] Medication Refill Social History Tobacco [...] on file Legal Sex Female 3:14 AM DIRECTOR OF BROADCAST Gender Identity Not on file Sexual Orientation Not on file 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
--- OUTSIDE RECORDS SUMMARY | 2025-01-08 08:13 | XMS_ITS | Encounter Summary ---
Author Organization [place] Address [address] [place] [address]. 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 No / Unsure 09/03/2022 7:16 AM NUCLEAR PLANT CONSTRUCTION WORKER documented as of this encounter Miscellaneous Notes * Telephone Encounter - Leona Zambrano - 10/07/2017 3:57 PM CST Please abstract the following data from this visit with this patient into the appropriate field in Epic: Colonoscopy done on this date: Winter 2016 (approximately), by this group: [facility], results were normal. Mammogram done on this date: August 15 2017 (approximately), by this group: [facility], results werenormal. EAR PLANT CONSTRUCTION WORKER documented in this encounter Plan of Treatment Not on file documented as of this encounter Visit Diagnoses Not on filedocumented in this encounter Care Teams White Sugar Syrup Operator Relationship Specialty Start Date End Date Juan Manuel Meraz MD PCP - General 12/24/08 Juan Manuel Meraz MD [address] [place] [address] 100 [address] [place] [address] Assigned OBGYN Provider 07/04/20 documented as of this encounter
--- OUTSIDE RECORDS SUMMARY | 2025-01-08 08:13 | XMS_ITS | Encounter Summary ---
Author Organization [place] Address [address] [place] [address] Care Team Providers Care Production Mechanic Name Role Phone Juan Manuel Meraz MD Primary Care Provider [phone] Juan Manuel Meraz MD Unavailable [phone] Reason for Visit * Reason Onset Date Comments Health Maintenance 10/07/2017 Colonoscopy C ompleted Encounter Details Date Type Department Care Team (Late st Contact Info) Description 10/07/[address] [address] Juan Manuel Meraz MD [address] [place] [address] [address] [place] [address] Health Maintenance (Colonoscopy Completed ) [...] on file Legal Sex Female 3:14 AM DATABASE DEVELOPMENT PROJECT MANAGER Gender Identity Not on file Sexual [...] Coronavirus/COVID-19? No / Unsure 09/03/2022 7:16 AM DATABASE DEVELOPMENT PROJECT MANAGER documented as of this encounter Miscellaneous Notes * Telephone Encounter - Bri Patrick - 10/07/2017 4:02 PM CST Please abstract the following data from this visit with this patient into the appropriate field in Epic: Colonoscopy done on this date: July 19, 2016 (approximately), by this group: [facility], results were normal. BASE DEVELOPMENT PROJECT MANAGER documented in this encounter Plan of Treatment Not on file documented as of this encounter Visit Diagnoses Not on filedocumented in this encounter Care Teams Production Mechanic Relationship Specialty Start Date End Date Juan Manuel Meraz MD PCP - General 12/24/08 Juan Manuel Meraz MD [address] [place] [address] 100 [address] [place] [address] Assigned OBGYN Provider 07/04/20 documented as of this encounter
[2025-01-08 08:34] LABS: Appearance Urine Clear (Clear); Bilirubin Urine Negative (Negative); Blood Urine Negative (Negative); Color Urine Yellow (Yellow); Glucose Urine Negative (Negative); Ketones Urine Negative (Negative); Leukocyte Esterase Urine Negative (Negative); Nitrite Urine Negative (Negative); Protein Urine Negative (Negative); Urobilinogen Urine 0.2 (0.2-1.0); pH Urine 5.5 (5.0-8.5)
[2025-01-08 08:42] LABS: Basophils Absolute Auto 0.04 K/uL (0.00-0.30); Basophils Percent Auto 0.9 % (0.0-3.0); Eosinophils Absolute Auto 0.06 K/uL (0.00-0.50); Eosinophils Percent Auto 1.3 % (0.0-7.0); Hematocrit 39.1 % (33.0-51.0); Hemoglobin* 13.2 gm/dL (12.0-16.0); Lymphocytes Percent Auto 35.3 % (20-44); Mean Corpuscular HGB Conc 34 gm/dL (32-36); Mean Corpuscular Hemoglobin 30 pg (26-34); Mean Corpuscular Volume 90 fL (80-100); Monocytes Percent Auto 7.9 % (0.0-11.0); Neutrophils Absolute Auto 2.47 K/uL (1.7-7.0); Neutrophils Percent Auto 54.6 % (42.0-72.0); Platelet Count* 222 K/uL (140-440); RDW Coefficient of Variation % 12.8 % (11.5-15.5); Red Blood Count 4.36 m/uL (4.00-5.20); White Blood Count* 4.53 K/uL (4.50-11.00)
[2025-01-08 08:42] LABS: RBC Urine 0-2 (0-2); WBC Urine 0-2 (0-5)
[2025-01-08 08:45] LABS: Slide Review Reflex No
[2025-01-08 08:50] LABS: Albumin* 4.3 g/dL (3.3-5.0); Chloride* 104 mmol/L (96-114); Sodium* 138 mmol/L (135-149)
[2025-01-08 08:53] LABS: Alanine Aminotransferase* 18 U/L (4-35); Alkaline Phosphatase* 47 U/L (40-150); Anion Gap 6 mEq/L (7-15); Aspartate Amino Transferase* 28 U/L (12-35); Bilirubin Total* 0.8 mg/dL (0.1-1.5); Blood Urea Nitrogen* 15 mg/dL (7-30); Carbon Dioxide* 28 mmol/L (20-32); Creatinine* 0.7 mg/dL (0.5-1.5); Estimated Glomerular Filt Rate 100 ml/min; Glucose* 91 mg/dL (60-115); Total Protein* 6.5 g/dL (6.0-8.3)
[2025-01-08] MEDS: ONDANSETRON 2 MG/ML inj 4 MG IVP (09:21)
[2025-01-08] MEDS: fentaNYL 100 MCG/2 ML inj 50 MCG IVP (09:21)
--- NOTE | 2025-01-08 09:42 | CRLHL7_ITS ---
For Patients: As a result of the Century Cures Act, medical imaging exams and procedure reports are released immediately into your electronic medical record. You may view this report before your referring provider. If you have questions, please contact your health care provider. INDICATION: Follow-up hernia COMPARISON: An ultrasound dated January 08, 2025 TECHNIQUE: CT examination of the abdomen and pelvis was performed following the uneventful intravenous administration of 57 cc of Isovue 370. Thin section axial images were obtained from the lung bases through the pubic symphysis. Oral contrast was not administered. Please note that all CT scans at this facility use dose modulation, iterative reconstruction, and/or weight-based dosing when appropriate to reduce radiation dose to as low as reasonably achievable. FINDINGS: LUNG BASES: The lung bases as visualized appear normal.The heart size is normal at the lung bases. LIVER/BILIARY SYSTEM:The liver is normal in size and configuration. There is no focal mass and there is no intra- or extra hepatic biliary ductal dilatation.Distended but otherwise unremarkable appearing gallbladder ADRENALS: Normal KIDNEYS, URETERS and BLADDER:The kidneys appear normal. No visible mass, calculus or hydronephrosis. The ureters and bladder as visualized appear normal. SPLEEN:Normal appearance. PANCREAS: Appears normal. RETROPERITONEUM and MESENTERY: There is no mass, adenopathy or aortic aneurysm. GASTROINTESTINAL SYSTEM: Diffuse colonic fecal retention. No evidence of mechanical obstruction. Scattered diverticulosis. PELVIS: No mass, adenopathy or free fluid. OSSEOUS STRUCTURES and ABDOMINAL WALL: There is an age-appropriate appearance of the osseous structures.There is a fat containing left inguinal hernia. There is a larger right inguinal hernia fat admits what appears to be primarily peritoneum filled with fluid. I do not convincingly see any loop of bowel within this hernia sac. The fat in this area appears inflamed. Surgical consultation is recommended for further evaluation. OTHER: No free fluid or free air. IMPRESSION: 1. There is a right inguinal hernia. By CT, this contains a peritoneal sac containing fluid but no definite bowel contents within the hernia sac. The fat in this area appears to be inflamed. The fluid containing sac measures about 4.3 x 2.0 centimeters. Surgical consultation is advised. 2. Small fat containing left inguinal hernia without evidence of inflammation. 3. Other nonacute appearing findings as above. Please note that all CT scans at this facility use dose modulation, iterative reconstruction, and/or weight-based dosing when appropriate to reduce radiation dose to as low as reasonably achievable. Dictated by Jose Minor MD @ 01/08/2025 10:30:28 AM (Electronically Signed)
[2025-01-08] MEDS: LACTATED RINGERS 1000 ML 1,000 ML 100 ML IV (12:00)
[2025-01-08] MEDS: SODIUM CHLORIDE 0.9 % (FLUSH) 10 ML SYRINGE IVF (12:04)
[2025-01-08] MEDS: CEFAZOLIN 1 GM inj IVP (12:29)
--- NOTE | 2025-01-08 12:32 | PM.GSCN ---
History of Present Illness Consult details Date Seen: 01/08/25 Consult date: 01/08/25 Narrative: Patient presented to the emergency department with worsening pain and a bulge in her right groin. She 1st noticed a bulge and discomfort yesterday around 2:00 p.m.. 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 It was near the end of all this activity that she developed the pain. The bulge has persisted and she has been unable to push it away. It has been getting worse. She denies any nausea or vomiting. Her last bowel movement was this morning at 2:00 a.m. and normal. She has never had anything like this before. Her surgical history is positive for an open appendectomy. Review of Systems Status of ROS: Reports: 10 or more systems reviewed and unremarkable except as noted in History and below [facility] Medical History (Updated 01/08/25 @ 12:35 by Treasure Rosario MD) Anxiety ?F41.9 - Anxiety disorder, unspecified (ICD-10) Low back pain ?M54.50 - Low back pain, unspecified (ICD-10) Surgical History (Updated 07/15/22 @ 13:29 by Ronel Tyler ~ CARDIOLOGY TECHNOLOGIST, CARDIOLOGY TECHNOLOGIST) History of back surgery ?Z98.890 - Other specified postprocedural states (ICD-10) History of bladder surgery ?Z98.890 - Other specified postprocedural states (ICD-10) History of appendectomy ?Z90.49 - Acquired absence of other specified parts of digestive tract (ICD-10) Social History Smoking Status: Never smoker Second hand tobacco smoke exposure: No How often do you have a drink containing alcohol: 2-4 times a month AUDIT-C Alcohol total score: 2 Non-prescribed substance use: denies use Caffeine: Yes Meds Home Medications and Allergies Home Medications ?Medication ?Instructions ?Recorded ?Confirmed ?Type citalopram 20 mg tablet 20 mg PO QDAY 07/15/22 01/08/25 History oxybutynin chloride 5 mg 5 mg PO QDAY 07/15/22 01/08/25 History tablet,extended release 24 hr Allergies Allergy/AdvReac Type Severity Reaction Status Date / Time Sulfa (Sulfonamide Allergy Hives Verified 01/08/25 12:04 Antibiotics) Exam Narrative: Exam Narrative: General: Alert and oriented, no acute distress Respiratory: Equal breath rise bilaterally, maintained on room air CV: Well perfused Abdomen: Soft, nontender nondistended. Well-healed right lower quadrant abdominal incision : Normal external female genitalia. Bulge in the right groin palpated. This was able to be reduced with pressure applied anteriorly. Const: Vital Signs, click to edit/add: Vital Signs - 24 hr 01/08/25 07:35 01/08/25 09:02 01/08/25 09:30 Temperature 98.7 F Pulse Rate Pulse Rate [Pulse Oximeter] 66 61 65 Respiratory Rate 16 18 16 Blood Pressure Blood Pressure [Ri ght Upper Arm] 127/78 132/82 121/77 Pulse Oximetry 96 99 99 Oxygen Delivery Me thod Room Air Room Air Room Air 01/08/25 10:00 01/08/25 10:30 01/08/25 11:00 Temperature Pulse Rate Pulse Rate [Pulse Oximeter] 62 66 67 Respiratory Rate 16 16 16 Blood Pressure Blood Pressure [Ri ght Upper Arm] 118/74 117/63 101/88 Pulse Oximetry 99 100 98 Oxygen Delivery Me thod Room Air Room Air Room Air 01/08/25 11:30 01/08/25 12:01 Temperature 97.7 F Pulse Rate 63 Pulse Rate [Pulse Oximeter] 64 Respiratory Rate 16 16 Blood Pressure 129/77 Blood Pressure [Ri ght Upper Arm] 116/75 Pulse Oximetry 98 96 Oxygen Delivery Me thod Room Air Room Air Results Labs Labs: Abnormal lab results 01/08/25 Range/Units 08:27 Anion Gap 6 L (7-15) mEq/L Diabetes panel 01/08/25 Range/Units 08:27 Sodium 138 (135-149) mmol/L Potassium 4.0 (3.6-5.1) mmol/L Chloride 104 (96-114) mmol/L Carbon Dioxide 28 (20-32) mmol/L BUN 15 (7-30) mg/dL Creatinine 0.7 (0.5-1.5) mg/dL Glucose 91 (60-115) mg/dL Calcium 9.0 (8.4-10.6) mg/dL AST 28 (12-35) U/L ALT 18 (4-35) U/L Alkaline Phosphatase 47 (40-150) U/L Total Protein 6.5 (6.0-8.3) g/dL Albumin 4.3 (3.3-5.0) g/dL Calcium panel 01/08/25 Range/Units 08:27 Calcium 9.0 (8.4-10.6) mg/dL Albumin 4.3 (3.3-5.0) g/dL Pituitary panel 01/08/25 Range/Units 08:27 Sodium 138 (135-149) mmol/L Potassium 4.0 (3.6-5.1) mmol/L Chloride 104 (96-114) mmol/L Carbon Dioxide 28 (20-32) mmol/L BUN 15 (7-30) mg/dL Creatinine 0.7 (0.5-1.5) mg/dL Glucose 91 (60-115) mg/dL Calcium 9.0 (8.4-10.6) mg/dL Adrenal panel 01/08/25 Range/Units 08:27 Sodium 138 (135-149) mmol/L Potassium 4.0 (3.6-5.1) mmol/L Chloride 104 (96-114) mmol/L Carbon Dioxide 28 (20-32) mmol/L BUN 15 (7-30) mg/dL Creatinine 0.7 (0.5-1.5) mg/dL Glucose 91 (60-115) mg/dL Calcium 9.0 (8.4-10.6) mg/dL Total Bilirubin 0.8 (0.1-1.5) mg/dL AST 28 (12-35) U/L ALT 18 (4-35) U/L Alkaline Phosphatase 47 (40-150) U/L Total Protein 6.5 (6.0-8.3) g/dL Albumin 4.3 (3.3-5.0) g/dL All other labs normal. Imaging Abdomen CT scan report/results: report reviewed and image reviewed Progress Note:A&P Assessment and plan (1) Right inguinal hernia: Status: Acute Assessment and Plan: Patient presented to the ED with a symptomatic right inguinal hernia. On workup CT imaging demonstrated an incarcerated hernia sac on the right side with peritoneal fluid and fat inflammation. During my examination I was able to reduce this, resulting in partial relief. No evidence of small bowel within the hernia or obstruction. Different treatment options were reviewed with the patient, including repair today. Would plan for an open approach and placement of mesh. The risks of hernia surgery with and without mesh are described below. Based on FDA?s analysis of spanish medical interpreter adverse event reports and of peer-reviewed, scientific literature, the most common adverse events for all surgical repair of hernias--with or without mesh--are pain, infection, hernia recurrence, scar-like tissue that sticks tissues together (adhesion), blockage of the large or small intestine (obstruction), bleeding, abnormal connection between organs, vessels, or intestines (fistula), fluid build-up at the surgical site (seroma), and a hole in neighboring tissues or organs (perforation). Some other potential adverse events that can occur following hernia repair with mesh are mesh migration and mesh shrinkage (contraction). The patient had time to ask questions and/or voice any concerns. She then decided to proceed with operative repair. Will plan to take the patient to the operating room this afternoon. -continue NPO -preoperative antibiotics to be given in the OR -will plan for same-day surgery
[2025-01-08] MEDS: SCOPOLAMINE 1 MG/3 DAY PATCH 1 PATCH TRANSDERMA (12:33)
[2025-01-08] MEDS: BUPIVACAINE 0.25% 30 ML INJECTION (13:30)
--- NOTE | 2025-01-08 13:44 | PM.GSPRC ---
Operative Note Date of procedure: 01/08/25 Pre-op diagnosis: Right inguinal hernia, incarcerated intra-abdominal fat Post-op diagnosis: Same Type of Procedure: Open right inguinal hernia repair with placement of mesh Indications: Patient presented to the emergency department with a symptomatic right inguinal hernia. Evidence of incarcerated hernia sac with peritoneal fluid and fat. Recommendations were to proceed to the operating room for repair. Risks and benefits of operative intervention were discussed at length with the patient. Risks included but was not limited to: Bleeding, infection, risk of damage to surrounding structures, possible need for additional procedures and postoperative complications such as pneumonia, pulmonary emboli or AK. All questions and concerns were addressed with the patient agreeing to proceed. Procedure Description: After discussing the risks and benefits of the procedure, the patient signed informed consent.? The operative site was marked and the patient was brought to the operating room and placed on the operating table in supine position.? Care was taken to pad the patient's pressure points.?? The patient was then intubated by anesthesia.?? The operative site was then prepped and draped in the usual sterile fashion.? A time-out was then performed. Local anesthetic was injected into the skin and subcutaneous tissue overlying the inguinal canal. An oblique incision would was made over the external ring. Dissection was carried down into the subcutaneous tissue using cautery. A subcutaneous vein was ligated with 3-0 Vicryl ties. Dissection continued until the external oblique fascia was encountered. This was cleared off. The external ring was identified and after injection of more local anesthetic, the external oblique was incised using a knife. This was extended using the Metzenbaum scissors with care to dissect the underlying structures away before cutting. The ilioinguinal nerve was identified, ligated with 3-0 Vicryl and transected. The hernia sac was incarcerated within the inguinal canal with evidence of peritoneal fluid and intra-abdominal fat. No evidence of incarcerated bowel. The sac was then dissected off of the round ligament. The round ligament was ligated with 2-0 Vicryl and transected. The hernia sac was then reduced into the abdomen. The opening of the internal ring was closed with several interrupted 2 0 Vicryl stitches. A piece of polypropylene mesh was obtained and cut to size. This was secured to the pubic tubercle using 2-0 Prolene and a double-arm suture. The Prolene was run along the inguinal ligament and superiorly along the transversalis fascia. The wound was examined for hemostasis, which was excellent. The external oblique fascia was then reapproximated with absorbable suture. The wound was closed in layers including Betty's fascia and the dermis with the cervical suture. The skin was then closed with a running subcuticular suture. Sterile dressings were applied. Instrument sponge and needle counts were correct at the end of the case. The patient was woken and taken to the PACU in stable condition. Findings: Right indirect hernia with incarcerated hernia sac and intra-abdominal fat Anesthesia: SCARLETT Surgeon: Treasure Rosario MD Estimated blood loss (mL): 5 Condition: stable Disposition: PACU
--- NOTE | 2025-01-08 13:56 | P.ANES_ITS ---
Anesthesia Charges Start Date/Time Anesthesia Start Date: 01/08/25 Anesthesia Start Time: 12:19 Stop Date/Time Anesthesia Stop Date: 01/08/25 Anesthesia Stop Time: 13:51 Coding CPT Codes CPT Codes: ANESTH REPAIR OF HERNIA - 83457 ([id number]) P2 - PATIENT W/MILD SYST DISEASE, QK - CRANE MANAGER 2-4 CNCRNT ANES PROC, QX - SALESPERSON WIGS SVC W/ MD MED DIRECTION
--- NOTE | 2025-01-08 13:56 | W.ANESCHARGE ---
Anesthesia Charges Start Date/Time Anesthesia Start Date: 01/08/25 Anesthesia Start Time: 12:19 Stop Date/Time Anesthesia Stop Date: 01/08/25 Anesthesia Stop Time: 13:51 Coding CPT Codes CPT Codes: ANESTH REPAIR OF HERNIA - 84012 ([id number]) P2 - PATIENT W/MILD SYST DISEASE, QK - FLUID JET CUTTER OPERATOR 2-4 CNCRNT ANES PROC, QX - RIPSAW OPERATOR SVC W/ MD MED DIRECTION
--- NOTE | 2025-01-08 14:25 | P.ANES_ITS ---
Anesthesia Charges Start Date/Time Anesthesia Start Date: 01/08/25 Anesthesia Start Time: 12:19 Stop Date/Time Anesthesia Stop Date: 01/08/25 Anesthesia Stop Time: 13:51 Summary Emergency: TJ Coding CPT Codes CPT Codes: ANESTH REPAIR OF HERNIA - 45292 ([id number]) QK - LEARNING ANALYST 2-4 CNCRNT ANES PROC, QX - HEALTHCARE ECONOMICS CONSULTANT SVC W/ MD MED DIRECTION, P2 - PATIENT W/MILD SYST DISEASE Additional Codes: Summary - Emergency: TJ ([id number])
--- NOTE | 2025-01-08 14:25 | W.ANESCHARGE ---
Anesthesia Charges Start Date/Time Anesthesia Start Date: 01/08/25 Anesthesia Start Time: 12:19 Stop Date/Time Anesthesia Stop Date: 01/08/25 Anesthesia Stop Time: 13:51 Summary Emergency: TJ Coding CPT Codes CPT Codes: ANESTH REPAIR OF HERNIA - 05993 ([id number]) QK - MINE ENGINEERING SUPERINTENDENT 2-4 CNCRNT ANES PROC, QX - INJECTION MOLDING ENGINEER SVC W/ MD MED DIRECTION, P2 - PATIENT W/MILD SYST DISEASE Additional Codes: Summary - Emergency: TJ ([id number])
--- NOTE | 2025-01-08 14:36 | SUR.PHASEII ---
Patient ambulated to restroom to void.
[2025-01-08] MEDS: METOCLOPRAMIDE HCL 5 MG/ML INJ 10 MG IVP (15:14)
== END 2025-01-08 15:38 | disposition home or self-care (01) ==
LOC: ED 11:43 → OR 11:44
PROVIDERS: Emergency Provider Emergency Medicine; Visit Provider Surgery
PROC: (CPT 49507; principal; 2025-01-08 13:00)
DX: K40.30 Unilateral inguinal hernia, with obstruction, without gangrene, not specified as recurrent (principal); R10.31 Right lower quadrant pain; R10.2 Pelvic and perineal pain; F41.9 Anxiety disorder, unspecified
CPT/HCPCS: 49507; 00830; 36415; 74177; 76857; 80053; 81001; 85025; 99140; 99283; 99285; A9270; C1781; J0665; J0690; J1100; J2250; J2371; J2405; J2704; J2765; J3010; J7120; Q9967